=== PATIENT | female | born 1950 | race Caucasian/White ===

== ENCOUNTER 2019-11-29 10:42 | Emergency (ER) | payer OTHER ==
[2019-11-29] MEDS ORDERED: NA CHLORIDE 0.9% 1,000 ML ONE ×2 (11:17→12:20)
[2019-11-29] MEDS ORDERED: MORPHINE 4 MG/ML SYR ONE (11:17)
[2019-11-29] MEDS ORDERED: ONDANSETRON 4 MG/2 ML VIAL ONE (11:17)
[2019-11-29 11:27] LABS: Albumin 3.9 g/dL (3.4-5.0); Bilirubin Direct 0.4 mg/dL (0-0.2); Bilirubin Total 1.6 mg/dL (0.2-1.0); Potassium 3.7 mmol/L (3.5-5.1); Protein, Total 8.2 g/dL (6.4-8.2)
[2019-11-29 11:40] LABS: Absolute Lymphocytes (CBC) 2.8 K/uL (0.7-4.9); Hematocrit 44.7 % (36.0-45.0); Lymphocytes % 28.2 % (15.3-44.8); MPV 10.2 fL (7.6-11.3)
--- NOTE | 2019-11-29 11:46 | RAD REPORT ---
EXAM DESCRIPTION: CT - Stone Protocol - 11/29/2019 11:26 am CLINICAL HISTORY: Abdominal pain. COMPARISON: None. TECHNIQUE: Computed axial tomography of the abdomen pelvis was obtained without oral or IV contrast. Lack of IV and oral contrast limits evaluation of solid organs, bowel, and vessels. Coronal reformat josiah images were obtained and reviewed. All CT scans are performed using dose optimization technique as appropriate and may include automated exposure control or mA/KV adjustment according to patient size. FINDINGS: 1 millimeter nonobstructing right renal calculus. 2.1 centimeter low-density mass right ki dney probably a cyst Mild left hydronephrosis. Parapelvic left renal cysts. 5 millimeter calculus proximal left ureter. [place] unit 1160. Small left renal cysts The liver, spleen, pancreas and adrenals appear grossly normal. Cholecystectomy There is no evidence of diverticulitis. The appendix appears normal IMPRESSION: 5 millimeter calculus proximal left ureter resulting in mild left hydronephrosis
[2019-11-29] MEDS ORDERED: HYDROMORPHONE HCL 2 MG/ML inj ONE (12:20)
--- NOTE | 2019-11-29 12:52 | ER ---
Nurse's Notes [facility] Name: Esther Simpson Age: 69 yrs Sex: Female : 1950 Arrival Date: 11/29/2019 Time: 10:47 Bed 20 Private MD: Diagnosis: Calculus of kidney and ureter-left ;Cystitis, unspecified without hematuria;Vomiting Presentation: 11/28 11:19 Chief complaint: Patient states: R flank pain, radiates to RLQ with nausea that began ss 30 minutes ago, suddenly. Coronavirus screen: Client denies travel out of the [place] in the last 14 days. At this time, the client does not indicate any symptoms associated with coronavirus-19. Ebola Screen: Patient denies exposure to infectious person. Patient denies travel to an Ebola-affected area in the 21 days before illness onset. Initial Sepsis Screen: Does the patient meet any 2 criteria? No. Patient's initial sepsis screen is negative. Does the patient have a suspected source of infection? No. Patient's initial sepsis screen is negative. Risk Assessment: Do you want to hurt yourself or someone else? Patient reports no desire to harm self or others. Onset of symptoms was November 29, 2019. 11:19 Method Of Arrival: Ambulatory ss 11:19 Acuity: QUAN 2 ss Historical: - Allergies: 11:21 No Known Allergies; ss - PSHx: 11:21 Cholecystectomy; ss - Immunization history:: Adult Immunizations up to date. - Social history:: Smoking status: Patient denies any tobacco usage or history of. Patient/guardian denies using alcohol, street drugs, The patient lives with family. - Family history:: not pertinent. Screenin:10 Abuse screen: Denies threats or abuse. Denies injuries from another. Nutritional ss screening: No deficits noted. Tuberculosis screening: Never had TB. Fall Risk None identified. Assessment: 11:10 General: Appears distressed, uncomfortable, Behavior is cooperative, restless, Denies ss fever, fatigue, chills. Pain: Complains of pain in L flank Pain radiates to LLQ Pain currently is 10 out of 10 on a pain scale. Quality of pain is described as sharp, Pain began suddenly, 30 min ago. Is continuous. Neuro: Level of Consciousness is awake, alert, obeys commands, Oriented to person, place, time, situation. Cardiovascular: Capillary refill < 3 seconds is brisk in bilateral fingers. Respiratory: Airway is patent Respiratory effort is even, unlabored, Respiratory pattern is regular, symmetrical. GI: Reports nausea, vomiting, Patient currently denies diarrhea. : Denies burning with urination, urinary frequency. EENT: Oral mucosa is moist. Derm: Skin is intact, is healthy with good turgor, Skin is clammy, Skin is pink. Musculoskeletal: Circulation, motion, and sensation intact. Range of motion: intact in all extremities, Swelling absent. 11:23 Reassessment: To CT VIA wheelchair. Accompanied by school bus technician. 13:00 Reassessment: Pt vomiting at this time. Informed MD. Orders received for dilaudid and phenergan. Medications administered. Pt repositioned in bed. Warm blanket provided. Pt voiced that she did not feel that she could go home at this time. Informed MD. 14:00 Reassessment: Patient and/or family updated on plan of care and expected duration. Pain ah level reassessed. Pt resting in bed at this time. No needs voiced. 15:15 Reassessment: Assisted pt to restroom. Urine collected at that time. Assisted back to room and in bed. Pt tolerated fair. No needs voiced at this time. 16:05 Reassessment: Patient and/or family updated on plan of care and expected duration. Pain ah level reassessed. Pt with c/o pain, MD notified. Order received to give Dilaudid. Medication given. No other needs voiced at this time. 17:20 Reassessment: Patient and/or family updated on plan of care and expected duration. Pain ah level reassessed. Pt resting at this time. No needs voiced. Pt aware of being transferred. 18:13 Reassessment: Report given to KVNG Mccarty. 19:05 Reassessment: Report given to Claudio news agent. Pt ready for transport. Vital Signs: 11:19 BP 161 / 75; Pulse 72; Resp 20; Temp 97.0(TE); Pulse Ox 97% ; Weight 82.55 kg; Height 5 ss ft. 0 in. (152.40 cm); Pain 10/10; 12:18 BP 166 / 82; Pulse 71; Resp 18; Pain 10/10; ll1 13:00 BP 158 / 78; Pulse 73; Resp 18; Pulse Ox 96% ; ah 14:00 BP 143 / 68; Pulse 57; Resp 18; Pulse Ox 97% ; ah 15:00 BP 169 / 75; Pulse 60; Resp 18; Pulse Ox 93% ; ah 16:00 BP 155 / 73; Pulse 61; Resp 18; Pulse Ox 96% ; ah 17:00 BP 149 / 82; Pulse 61; Resp 17; Pulse Ox 97% ; ah 11:19 Body Mass Index 35.54 (82.55 kg, 152.40 cm) ED Course: 10:47 Patient arrived in ED. bp1 10:51 Malinda Day MD is Attending Physician. ma2 11:10 Patient has correct armband on for positive identification. Bed in low position. Call ss light in reach. 11:10 Inserted saline lock: 20 gauge in right antecubital area, using aseptic technique. ss Blood collected. 11:21 Triage completed. ss 11:21 Arm band placed on right wrist. 11:26 CT Stone Protocol In Process Unspecified. EDMS 12:17 Samia Mancia, RN is Primary Nurse. ll1 12:36 Primary Nurse role handed off by Samia Mancia, KVNG 12:36 Joyce Aguayo, RN is Primary Nurse. 12:51 Rusty Stout MD is Referral Physician. ma2 16:33 initiated a transfer with CHAPARRO Lora from the [facility] Transfer [place]. eb 16:[address] Royal the urologist cotton ball machine tender for [facility] with Dr. Day for eb patient transfer consultation. 16:[address] Farah the hospitalist cotton ball machine tender for [facility] with Dr. Villalta for eb patient transfer consultation. 16:56 administrative approval given by CHAPARRO Lora/ patient has been accepted to [facility] eb 16 tower [id number]/ Dr. Ghosh has accepted the patient in transfer/ report to be called to the transfer center at [phone]. 19:06 No provider procedures requiring assistance completed. Patient transferred, IV remains ah in place. Administered Medications: 11:12 Drug: Zofran (Ondansetron) 4 mg Route: IVP; Site: right antecubital; 14:07 Follow up: Response: No adverse reaction ah 11:12 Drug: NS 0.9% 1000 ml Route: IV; Rate: 1000 ml; Site: right antecubital; ss 11:15 Drug: morphine 4 mg Route: IVP; Site: right antecubital; ss 12:13 Follow up: Response: No adverse reaction; RASS: Restless (+1) ss 12:17 Drug: NS 0.9% 1000 ml Route: IV; Rate: 1 bolus; Site: right antecubital; 1 16:07 Follow up: Response: No adverse reaction; IV Status: Completed infusion ah 12:18 Drug: Dilaudid 1 mg Route: IVP; Site: right antecubital; 1 14:07 Follow up: Response: No adverse reaction ah 13:15 Drug: Phenergan 25 mg Route: IVP; Site: right forearm; 14:06 Follow up: Response: No adverse reaction 13:15 Drug: Dilaudid 1 mg Route: IVP; Site: right forearm; 14:07 Follow up: Response: No adverse reaction 15:45 Drug: Rocephin 1 grams Route: IV; Rate: calculated rate; Site: right forearm; 16:07 Drug: Dilaudid 1 mg Route: IVP; Site: right forearm; 19:56 Follow up: Response: No adverse reaction; Pain is decreased Outcome: 12:51 Discharge ordered by MD. ferreira 16:19 ER care complete, transfer ordered by MD. ferreira 19:05 Transferred by ground EMS to [facility]. 19:05 Condition: stable 19:05 Instructed on the need for transfer. 19:06 Patient left the ED. Signatures: Dispatcher [employer] EDNH Rosangela Victoria RN RN ss Alzahri, Mohammad, MD MD ma2 Botello, Elizabeth eb Harris, Amy RN Samia Mccoy RN RN [facility] Heidi Najera Corrections: (The following items were deleted from the chart) 16:46 16:45 initiated a transfer with CHAPARRO Lora from the [facility] Transfer Center viktor
--- NOTE | 2019-11-29 12:53 | EDPHYS ---
Physician Documentation [facility] Name: Esther Simpson Age: 69 yrs Sex: Female : 1950 Arrival Date: 11/29/2019 Time: 10:47 Bed 20 Private MD: ED Physician Malinda Day HPI: 11/28 12:49 This 69 yrs old Female presents to ER via Ambulatory with complaints of Back ma2 Pain, Vomiting. 12:49 The patient presents with pain and decreased range of motion. Onset: The ma2 symptoms/episode began/occurred suddenly, gradually, 1 hour(s) ago. Associated signs and symptoms: Pertinent positives: vomiting, Pertinent negatives: dysuria, fever, hematuria, incontinence. Severity of symptoms: At their worst the symptoms were mild, in the emergency department the symptoms are unchanged. The patient has not experienced similar symptoms in the past. Historical: - Allergies: 11:21 No Known Allergies; ss - PSHx: 11:21 Cholecystectomy; ss - Immunization history:: Adult Immunizations up to date. - Social history:: Smoking status: Patient denies any tobacco usage or history of. Patient/guardian denies using alcohol, street drugs, The patient lives with family. - Family history:: not pertinent. ROS: 12:49 Constitutional: Negative for fever, chills, and weight loss. ma2 12:49 All other systems are negative. Exam: 12:49 Constitutional: This is a well developed, well nourished patient who is awake, alert, ma2 and in no acute distress. ENT: Nares patent. No nasal discharge, no septal abnormalities noted. Tympanic membranes are normal and external auditory canals are clear. Oropharynx with no redness, swelling, or masses, exudates, or evidence of obstruction, uvula midline. Mucous membranes moist. Neck: Trachea midline, no thyromegaly or masses palpated, and no cervical lymphadenopathy. Supple, full range of motion without nuchal rigidity, or vertebral point tenderness. No Meningismus. Chest/axilla: Normal chest wall appearance and motion. Nontender with no deformity. No lesions are appreciated. Cardiovascular: Regular rate and rhythm with a normal S1 and S2. No gallops, murmurs, or rubs. Normal PMI, no JVD. No pulse deficits. Respiratory: Lungs have equal breath sounds bilaterally, clear to auscultation and percussion. No rales, rhonchi or wheezes noted. No increased work of breathing, no retractions or nasal flaring. Abdomen/GI: Soft, non-tender, with normal bowel sounds. No distension or tympany. No guarding or rebound. No evidence of tenderness throughout. Back: No spinal tenderness. No costovertebral tenderness. Full range of motion. Skin: Warm, dry with normal turgor. Normal color with no rashes, no lesions, and no evidence of cellulitis. MS/ Extremity: Pulses equal, no cyanosis. Neurovascular intact. Full, normal range of motion. Vital Signs: 11:19 BP 161 / 75; Pulse 72; Resp 20; Temp 97.0(TE); Pulse Ox 97% ; Weight 82.55 kg; Height 5 ss ft. 0 in. (152.40 cm); Pain 10/10; 12:18 BP 166 / 82; Pulse 71; Resp 18; Pain 10/10; ll1 13:00 BP 158 / 78; Pulse 73; Resp 18; Pulse Ox 96% ; ah 14:00 BP 143 / 68; Pulse 57; Resp 18; Pulse Ox 97% ; ah 15:00 BP 169 / 75; Pulse 60; Resp 18; Pulse Ox 93% ; ah 16:00 BP 155 / 73; Pulse 61; Resp 18; Pulse Ox 96% ; ah 17:00 BP 149 / 82; Pulse 61; Resp 17; Pulse Ox 97% ; ah 11:19 Body Mass Index 35.54 (82.55 kg, 152.40 cm) ss MDM: 10:51 Patient medically screened. ma2 12:49 Differential diagnosis: spinal injury, sprain, Ureterolithiasis vertebral fracture. ma2 Data reviewed: vital signs, nurses notes. Counseling: I had a detailed discussion with the patient and/or guardian regarding: the historical points, exam findings, and any diagnostic results supporting the discharge/admit diagnosis, the presence of at least one elevated blood pressure reading (>120/80) during this emergency department visit, the need for outpatient follow up. Response to treatment: the patient's symptoms have resolved after treatment. 16:16 ED course: patient has intractable pain, received morphine and toradol x 4, she is ma2 still in pain and vomiting,, she needs to be admitted, no urology available . ED course: will transfer for higher level of care . 11/28 10:57 Order name: Basic Metabolic Panel; Complete Time: 11:58 ma2 11/28 10:57 Order name: CBC with Diff; Complete Time: 11:58 ma2 11/28 10:57 Order name: Hepatic Function; Complete Time: 11:58 ma2 11/28 10:57 Order name: Lipase; Complete Time: 11:58 ma2 11/28 10:57 Order name: Urine Microscopic Only; Complete Time: 15:53 ma2 11/28 13:13 Order name: Vitamin D, 25 (OH), TOTAL; Complete Time: 15:53 EDMS 11/28 10:57 Order name: CT Stone Protocol; Complete Time: 11:58 ma2 11/28 14:58 Order name: Urine Dipstick--Ancillary (enter results); Complete Time: 15:53 eb 11/28 15:11 Order name: Urine Culture EDMS 11/28 10:57 Order name: IV Saline Lock; Complete Time: 11:23 ma2 11/28 10:57 Order name: NPO; Complete Time: 12:13 ma2 11/28 10:57 Order name: Urine Dipstick-Ancillary (obtain specimen); Complete Time: 15:39 ma2 Administered Medications: 11:12 Drug: Zofran (Ondansetron) 4 mg Route: IVP; Site: right antecubital; ss 14:07 Follow up: Response: No adverse reaction 11:12 Drug: NS 0.9% 1000 ml Route: IV; Rate: 1000 ml; Site: right antecubital; ss 11:15 Drug: morphine 4 mg Route: IVP; Site: right antecubital; ss 12:13 Follow up: Response: No adverse reaction; RASS: Restless (+1) ss 12:17 Drug: NS 0.9% 1000 ml Route: IV; Rate: 1 bolus; Site: right antecubital; ll1 16:07 Follow up: Response: No adverse reaction; IV Status: Completed infusion 12:18 Drug: Dilaudid 1 mg Route: IVP; Site: right antecubital; ll1 14:07 Follow up: Response: No adverse reaction ah 13:15 Drug: Phenergan 25 mg Route: IVP; Site: right forearm; 14:06 Follow up: Response: No adverse reaction ah 13:15 Drug: Dilaudid 1 mg Route: IVP; Site: right forearm; 14:07 Follow up: Response: No adverse reaction 15:45 Drug: Rocephin 1 grams Route: IV; Rate: calculated rate; Site: right forearm; 16:07 Drug: Dilaudid 1 mg Route: IVP; Site: right forearm; 19:56 Follow up: Response: No adverse reaction; Pain is decreased Disposition: 11/29/19 16:19 Transfer ordered to Other Acute Care Facility. Diagnosis are Calculus of kidney and ureter - left , Cystitis, unspecified without hematuria, Vomiting. - Reason for transfer: Higher level of care. - Accepting physician is Dr. Royal Urology, accept to med surg. - Condition is Stable. - Problem is new. - Symptoms are unchanged. Signatures: Dispatcher [employer] EDMS Rosangela Victoria RN RN ss Alzahri, Mohammad, MD MD ma2 Joyce Aguayo RN RN ah Lewis, Lynsay, RN RN ll1 Corrections: (The following items were deleted from the chart) 13:33 12:51 11/29/2019 12:51 Discharged to Home. Impression: Calculus of kidney and ureter. ma2 Condition is Stable. Forms are Medication Reconciliation Form, Thank You Letter, Antibiotic Education, Prescription Opioid Use. Follow up: Rusty Stout; When: Tomorrow; Reason: Continuance of care. ma2 16:46 16:19 11/29/2019 16:19 Transfer ordered to Other Acute Care Facility. Diagnosis is ma2 Calculus of kidney and ureter - left ; Cystitis, unspecified without hematuria; Vomiting. Reason for transfer: Higher level of care. Accepting physician is urology. Condition is Stable. Problem is new. Symptoms are unchanged. ma2 16:53 16:46 11/29/2019 16:19 Transfer ordered to Other Acute Care Facility. Diagnosis is ma2 Calculus of kidney and ureter - left ; Cystitis, unspecified without hematuria; Vomiting. Reason for transfer: Higher level of care. Accepting physician is Dr. Royal Urologbassem. Condition is Stable. Problem is new. Symptoms are unchanged. ma2 19:06 16:53 11/29/2019 16:19 Transfer ordered to Other Acute Care Facility. Diagnosis is ah Calculus of kidney and ureter - left ; Cystitis, unspecified without hematuria; Vomiting. Reason for transfer: Higher level of care. Accepting physician is Dr. Royal Urology, accept to med surg. Condition is Stable. Problem is new. Symptoms are unchanged. ma2
[2019-11-29] MEDS ORDERED: HYDROMORPHONE HCL 1 MG/ML INJ ONE ×2 (13:22→16:10)
[2019-11-29] MEDS ORDERED: PROMETHAZINE INJ 25 MG/ML AMP ONE (13:22)
[2019-11-29 15:10] LABS: Urine Bacteria 20-50 /HPF (<20); Urine Culture Reflex Order REFLEXED; Urine RBC >50 /HPF (NONE SEEN)
[2019-11-29 15:11] LABS: Urine Yeast PRESENT (NONE SEEN)
[2019-11-29] MEDS ORDERED: CEFTRIAXONE/SWI 1gm 1 GM/10 ML SYR ONE (15:38)
[2019-11-29 15:39] LABS: Urine Blood 3+ (NEG); Urine Glucose NEGATIVE (NEG); Urine Protein TRACE (NEG); Urine Specific Gravity 1.025 (1.005-1.030); Urine pH 5.5 (5.0-7.0)
[2019-11-29 19:12] VITALS: TEMP 97
[2019-11-29 19:19] VITALS: BP 149/82; O2SAT 97
== END 2019-11-29 19:06 ==
LOC: ER 10:42
DX: N20.2 Calculus of kidney with calculus of ureter (principal); N30.90 Cystitis, unspecified without hematuria
CPT/HCPCS: 87088; 85025; 87086; 80048; 36415; 80076; 83690; 82306; 76377; 74176; J2550; J1170 ×3; J0696; J7030 ×2; J2405; 81003; 81015; 96361; 96374; 96375; 99285